=== PATIENT | female | born 1980 | race Caucasian/White ===

== ENCOUNTER 2016-09-06 16:02 | Emergency (ER) | payer BC ==
[~2016-09-06] VITALS: Ht 154.9 cm; Wt 57.2 kg
[2016-09-06 16:05] VITALS: Ht 154.9 cm; Wt 57.2 kg
[2016-09-06 17:59] LABS: URINE BLOOD (Dip) POC 2+ (NEGATIVE)
[2016-09-06] MEDS ORDERED: CEPHALEXIN 500 MG CAP PO ONE (18:30)
--- NOTE | 2016-09-06 19:00 | RADRPT ---
PROCEDURE: US Pelvis. CLINICAL INDICATION: Pelvic pain TECHNIQUE: Multiple sonographic images of the pelvis were obtained utilizing a transabdominal and endovaginal technique. The images were reviewed on a PACS workstation. COMPARISON: None. FINDINGS: The uterus is visualized and measures 6.0 x 2.1 x 3.4 cm. The endometrial echo complex measures 3 mm thickness. No uterine masses are identified. The right ovary measures 2.1 x 0.9 x 1.2 cm . The left ovary not well visualized. Right ovary demo nstrates a normal echogenicity and vascularity. Small left free fluid is seen in the cul-de-sac. IMPRESSION: Small amount of nonspecific free fluid in the cul-de-sac. This could be physiologic in nature. Left ovary not well visualized. If characterization of this structure is needed repeat exam or CT/MR I is recommended. Otherwise, unremarkable exam. If further characterization of the organs of the pelvis is needed MRI should be considered. RPTAT: AA .Luciano Cartagena MD, Date Time Electronically viewed and signed by .Luciano Cartagena MD, MD on 09/06/2016 18:59 .P/
[2016-09-06] MEDS ORDERED: CEPH-443 PO (19:17)
[2016-09-06] MEDS ORDERED: IBUP-1542 PO (19:17)
--- NOTE | 2016-09-06 19:20 | ERD ---
ER Documentation Chief Complaint Date/Time DATE: 09/06/16 TIME: 19:18 Chief Complaint AP SINCE LAST NIGHT HPI This 36 year female complains of right pelvic pain since last night. It does radiate slightly into her right groin area. She denies dysuria, fevers, nausea vomiting and has large appetite. She does not have menstrual periods due to her current control regimen. She denies . She denies vaginal discharge or bleeding ROS All systems reviewed and are negative except as per history of present illness. Medications Home Meds Active Scripts Cephalexin* (Keflex*) 500 Mg Capsule, 500 MG PO QID for 5 Days, CAP Prov:JOYCE MCMAHON MD 09/06/16 Ibuprofen* (Motrin*) 600 Mg Tab, 600 MG PO Q6, #15 TAB Prov:JOYCE MCMAHON MD 09/06/16 Allergies Allergies: Coded Allergies: No Known Allergies (Verified Allergy, Unknown, 09/06/16) PMhx/Soc Medical and Surgical Hx: pt denies Medical Hx, pt denies Surgical Hx Hx Alcohol Use: No Hx Substance Use: Yes (marijuana) Hx Tobacco Use: Yes (4-5 cig/day) Smoking Status: Current some day smoker Physical Exam Vitals Vital Signs Date Time Temp Pulse Resp B/P Pulse Ox O2 Delivery O2 Flow Rate FiO2 09/06/16 16:05 98.1 99 18 140/90 99 Physical Exam Const: [] Alert, [id number]. Head: Atraumatic Eyes: Normal Conjunctiva ENT: Normal External Ears, Nose and Mouth. Neck: Full range of motion..~ No meningismus. Resp: Clear to auscultation bilaterally Cardio: Regular rate and rhythm, no murmurs Abd: Soft, minimal tenderness in the right pelvic area without tenderness at McBurney's point no Abbott sign. No rebound. non distended. Normal bowel sounds Skin: No petechiae or rashes Back: No midline or flank tenderness Ext: No cyanosis, or edema Neur: Awake and alert Psych: Normal Mood and Affect Results 24 hrs Laboratory Tests Test 09/06/16 18:02 Bedside Urine Blood 2+ Bedside Urine Glucose (UA) Negative Bedside Urine Ketones (LAB) 2+ Bedside Urine Leukocyte Esterase (L 2+ Bedside Urine Nitrite (LAB) Negative Bedside Urine Protein (LAB) Negative Bedside Urine pH (LAB) 5.5 Current Medications Medications (Trade) Dose Ordered Sig/Rashaad Route PRN Reason Start Time Stop Time Status Last Admin Dose Admin Cephalexin (Keflex) 500 mg ONCE ONCE PO 09/06/16 18:30 09/06/16 18:35 DC 09/06/16 18:40 Procedures/MDM Urine shows 2+ leukocytes without nitrites and positive hemoglobin. Pelvic ultrasound shows no acute abnormalities although the left ovary is not visualized but this is not an area of patient's pain. Urine was sent for gonorrhea chlamydia. Patient was given Keflex 500 mg by mouth. Patient has right-sided pelvic pain of uncertain etiology without signs or symptoms to suggest tubo-ovarian abscess and no signs or symptoms currently of appendicitis, additional signs of acute abdomen. She will be treated with Keflex and ibuprofen and further observation. Patient should return for fevers, vomiting, worsening pain or migration of pain at McBurney's point in the next day otherwise with primary care doctor this week. The patient was stable with no new complaints during the ER course. Clinically, there is no current evidence to suggest meningitis, sepsis, acute abdomen, pneumonia, acute coronary syndrome, pulmonary embolism, or any other emergent condition appearing to require further evaluation or hospitalization. The patient should certainly return for any new or worsening symptoms per the aftercare instructions. They should otherwise follow-up with her primary care doctor for reevaluation this week. Departure Diagnosis: Primary Impression: UTI (urinary tract infection) Urinary tract infection type: site unspecified Hematuria presence: without hematuria Qualified Code: N39.0 - Urinary tract infection without hematuria, site unspecified Additional Impression: Pelvic pain Condition: Stable Patient Instructions: Understanding Urinary Tract Infections (UTIs), Pelvic Pain, Unknown Cause Additional Instructions: Ultrasound shows no acute abnormalities today. Urine does show signs of infection will be treated for this. Additional studies for infection have been sent. Recheck for fevers, vomiting, worsening or sustained pain in the next day. Recheck otherwise with primary doctor. JOYCE MCMAHON MD Sep 06, 2016 19:20
== END 2016-09-06 19:31 | disposition home or self-care (01) ==
LOC: FTE 16:02
DX: N39.0 Urinary tract infection, site not specified (principal); F17.210 Nicotine dependence, cigarettes, uncomplicated
CPT/HCPCS: 76830; 76856; 81003; 87591